=== PATIENT | male | born 1980 | race African-American/Black ===

== ENCOUNTER 2021-06-22 19:42 | Emergency (ER) | payer OTHER ==
[~2021-06-22] VITALS: Ht 167.6 cm; Wt 54.9 kg
[2021-06-22] MEDS ORDERED: OLANZAPINE 10 MG VIAL IM ONE (20:36)
[2021-06-22] MEDS: OLANZAPINE 10 MG VIAL IM ONE ×2 (20:50→21:04)
[2021-06-22 20:51] LABS: CALCIUM, SERUM 8.7 mg/dL (8.5-10.1); CARBON DIOXIDE 26 mmol/L (21-32); CHLORIDE 107 mmol/L (98-107); CREATININE 0.8 mg/dL (0.6-1.3); GLUCOSE 117 mg/dL (74-106); POTASSIUM 3.8 mmol/L (3.5-5.1); SODIUM SERUM 144 mmol/L (136-145); UREA NITROGEN, BLOOD 15 mg/dL (7-18)
[2021-06-22 20:57] LABS: ACETAMINOPHEN < 0 ug/ml (10-30); ALANINE AMINOTRANSFERASE 31 U/L (12-78); ALBUMIN 3.7 g/dL (3.4-5.0); ALKALINE PHOSPHATASE 82 U/L (46-116); ASPARTATE AMINOTRANSFERASE 20 U/L (15-37); BILIRUBIN,DIRECT 0.1 mg/dL (0.0-0.2); BILIRUBIN,TOTAL 0.4 mg/dL (0.2-1.0); TOTAL PROTEIN, SERUM 7.1 g/dL (6.4-8.2)
[2021-06-22 20:58] LABS: ALCOHOL, BLOOD < 3 mg/dL (0-0)
[2021-06-22 21:01] LABS: BASOPHILS % (AUTO) 0.6 % (0.0-2.0); EOSINOPHILS % (AUTO) 1.4 % (0.0-6.0); HEMATOCRIT 40 % (39-51); HEMOGLOBIN 13.3 g/dL (13.5-17.5); LYMPHOCYTES # (AUTO) 1.4 K/uL (0.8-4.8); LYMPHOCYTES % (AUTO) 20.2 % (20.0-44.0); MEAN CORPUSCULAR HGB CONC 33 g/dl (31.0-36.0); MEAN CORPUSCULAR VOLUME 92 fL (80-96); MONOCYTES # (AUTO) 0.4 K/uL (0.1-1.30); MONOCYTES % (AUTO) 6.1 % (2.0-12.0); NEUTROPHILS # (AUTO) 5.1 K/uL (1.8-8.9); NEUTROPHILS % (AUTO) 71.7 % (43.0-81.0); PLATELET COUNT (AUTO) 271 K/uL (150-450); RED BLOOD CELL COUNT(AUTO) 4.36 MIL/uL (4.5-6.0); WHITE BLOOD COUNT (AUTO) 7.2 K/uL (4.3-11.0)
--- NOTE | 2021-06-22 21:50 | NUR ---
KHANH FROM THE STREET TO ER BED 15. NOT IN RESP DISTRESS. NOT ANSWERING QUESTIONS. PT WAS FOUND RUNNING IN THE STREETS NAKED. MD WAS AT THE BEDSIDE FOR EVAL. ORDERS RECEIVED, NOTED AND CARRIED OUT.
--- NOTE | 2021-06-22 21:54 | NUR ---
URINE COLLECTED AND SENT TO LAB
[2021-06-22 22:13] LABS: BILIRUBIN,URINE NEGATIVE (NEGATIVE); COLOR,URINE YELLOW (YELLOW); LEUKOCYTE ESTERASE ,URINE NEGATIVE (NEGATIVE); NITRITE, URINE NEGATIVE (NEGATIVE); PROTEIN,URINE NEGATIVE (NEGATIVE); UGLUCOSE NEGATIVE (NEGATIVE); UROBILINOGEN,URINE 0.2 EU/dL (0.2)
--- NOTE | 2021-06-22 23:22 | NUR ---
Patient is resting comfortably in bed with eyes closed. Easily aroused. VSS
--- NOTE | 2021-06-23 08:16 | NUR ---
THE PATIENT IS RECEIVED IN ER BED #15. SLEEPING. EASILY RESPONSIVE TO VERBAL STIMULI. BREATHING EVEN AND UNLABORED. WILL CONTINUE TO MONITOR THE PATIENT.
--- NOTE | 2021-06-23 09:30 | NUR ---
THE PATIENT IS PROVIDED WITH BREAKFAST. TOLERATES WELL.
--- NOTE | 2021-06-23 12:23 | NUR ---
THE PATIENT IS PROVIDED WITH LUNCH. TOLERATES WELL
--- NOTE | 2021-06-23 13:25 | NUR ---
The patient is alert and oriented x4. Respiration regular and unlabored. Denies SOB. Denies pain. Patient given written and verbal discharge instructions. Patient verbalizes understanding of instructions. Patient is ambulatory with steady gait. Refuses offer of [facility]dc placement. Patient given list of available shelters in surrounding area. Left ER in stable condition.
[2021-06-23 13:26] VITALS: BP 131/74
== END 2021-06-23 13:26 | disposition home or self-care (01) ==
LOC: ER 19:45 → EDBD 19:45 → ER 06-23 13:26
DX: R46.1 Bizarre personal appearance (principal)
CPT/HCPCS: 36415; 80048; 80076; 80143; 80307; 80320; 81003; 85025; 96372; 99285; J3490; G0480